=== PATIENT | female | born 1995 | race Caucasian/White ===

== ENCOUNTER 2021-08-05 05:18 | Emergency (ER) | payer BC ==
[~2021-08-05] VITALS: Ht 177.8 cm; Wt 80.7 kg
== END 2021-08-05 13:06 | disposition home or self-care (01) ==
LOC: ER 05:18
DX: A90 Dengue fever [classical dengue] (principal); B34.9 Viral infection, unspecified; Z20.822 Contact with and (suspected) exposure to COVID-19